=== PATIENT | male | born 2000 | race American Indian/Alaskan Native ===

== ENCOUNTER 2020-05-04 19:46 | Emergency (ER) | payer SELFPAY ==
[2020-05-04 20:27] VITALS: BP 148/47
--- NOTE | 2020-05-04 20:56 | Event Note ---
ED Screening Note Date of service: 05/04/20 Time: 20:55 ED Screening Note: Patient complains of substernal chest pain x2 weeks This initial assessment/diagnostic orders/clinical plan/treatment(s) is/are subject to change based on patients health status, clinical progression and re- assessment by fellow clinical providers in the ED. Further treatment and workup at subsequent clinical providers discretion. Patient/guardian urged not to elope from the ED as their condition may be serious if not clinically assessed and managed. Initial orders include: Labs EKG Chest x-ray
[2020-05-04 21:30] LABS: Basophils # (Auto) 0.1 K/mm3 (0.0-0.1); Basophils % (Auto) 1.1 % (0.0-1.8); Eosinophils # (Auto) 0.3 K/mm3 (0.0-0.4); Eosinophils % (Auto) 2.8 % (0.0-4.3); Hemoglobin 15.3 gm/dl (11.8-15.2); Lymphocytes # (Auto) 3.3 K/mm3 (1.2-5.4); Mean Corpuscular HGB Conc 34 % (32-34); Mean Corpuscular Volume 88 fl (84-94); Monocytes # (Auto) 0.9 K/mm3 (0.0-0.8); Monocytes % (Auto) 9.4 % (0.0-7.3); Platelet Count 233 K/mm3 (140-440); Red Blood Count 5.13 M/mm3 (3.65-5.03); Red Cell Distribution Width 14.1 % (13.2-15.2)
[2020-05-04 21:50] LABS: Alanine Aminotransferase 13 units/L (7-56); Albumin 5.1 g/dL (3.9-5); BUN/Creatinine Ratio 5; Blood Urea Nitrogen 7 mg/dL (9-20); Calcium 10.1 mg/dL (8.4-10.2); Hemolysis Index 8
--- NOTE | 2020-05-04 22:11 | XRay Report ---
CHEST 2 VIEWS INDICATION / CLINICAL INFORMATION: substernal chest pain. COMPARISON: None available. FINDINGS: SUPPORT DEVICES: None. HEART / MEDIASTINUM: No significant abnormality. LUNGS / PLEURA: No significant pulmonary or pleural abnormality. No pneumothorax. ADDITIONAL FINDINGS: No significant additional findings. IMPRESSION: No acute cardiopulmonary abnormality. Signer Name: Cortez Sagastume MD Signed: 05/04/2020 10:06 PM Workstation Name: [id number]
--- NOTE | 2020-05-04 22:43 | Emergency Department Report ---
ED Chest Pain HPI - General Chief Complaint: Chest Pain Stated Complaint: CHEST PAIN Source: patient Mode of arrival: Ambulatory Limitations: No Limitations - History of Present Illness Initial Comments: Patient is a 19-year-old -[place] male with no past medical history presents to the ED with complaint of acute onset persistent anterior chest wall pain after heavy lifting at work for the last 1 week. Patient states that the pain is worse with movement, palpation or heavy lifting. Patient states that the pain is constant and persistent and especially in the last 2 days the pain is worsened as he continues to work which also entails heavy lifting. Patient denies shortness of breath, dizziness, syncope, nausea, vomiting, neck pain, headache, fall, traumatic injury, hemoptysis, fever, chills, abdominal pain, back pain, change in vision, palpitations or cough. MD Complaint: chest pain (Anterior chest wall pain from heavy lifting at work) -: Sudden, week(s) (1) Onset: during exertion, other (Heavy lifting) Pain Location: substernal (Anterior substernal chest wall pain) Pain Radiation: none Severity: moderate Severity scale (0 -10): 5 Quality: aching, sharp Consistency: constant Improves With: nothing Worsens With: palpation, movement, other (Lifting) Context: other (Heavy lifting at work) re: denies: nausea, vomting, diaphoresis, dyspnea, sense of impending doom Other Symptoms: denies: cough, fever, syncope, rash, leg swelling, palpitations, burping, other Treatments Prior to Arrival: none Aspirin use within the Past 7 Days: (0) No - Related Data On Oral Contraceptives: No Previous Rx's Medication Instructions Recorded Last Taken Type Ibuprofen [Motrin] 600 mg PO Q8H PRN #30 tablet 05/04/20 Unknown Rx Allergies Allergy/AdvReac Type Severity Reaction Status Date / Time No Known Allergies Allergy Unverified 05/04/20 20:25 Heart Score - HEART Score History: Slightly suspicious EKG: Normal Age: < 45 Risk factors: No known risk factors Troponin: < normal limit HEART Score: 0 - Critical Actions Critical Actions: 0-3 pts:0.9-1.7%risk of adverse cardiac event.Candidate for discharge ED Review of Systems ROS: Stated complaint: CHEST PAIN Other details as noted in HPI Constitutional: denies: chills, fever Eyes: denies: eye pain, eye discharge, vision change ENT: denies: ear pain, throat pain Respiratory: denies: cough, shortness of breath, wheezing Cardiovascular: chest pain (Anterior chest wall pain). denies: palpitations Endocrine: no symptoms reported Gastrointestinal: denies: abdominal pain, nausea, diarrhea Genitourinary: denies: urgency, dysuria Musculoskeletal: denies: back pain, joint swelling, arthralgia Skin: denies: rash, lesions Neurological: denies: headache, weakness, paresthesias Psychiatric: denies: anxiety, depression Hematological/Lymphatic: denies: easy bleeding, easy bruising ED Past Medical Hx - Past Medical History Previous Medical History?: No - Social History Smoking Status: Current Every Day Smoker - Medications Home Medications: Home Medications Medication Instructions Recorded Confirmed Last Taken Type Ibuprofen [Motrin] 600 mg PO Q8H PRN #30 tablet 05/04/20 Unknown Rx ED Physical Exam - General Limitations: No Limitations General appearance: alert, in no apparent distress - Head Head exam: Present: atraumatic, normocephalic, normal inspection - Eye Eye exam: Present: normal appearance, PERRL, EOMI Pupils: Present: normal accommodation - ENT ENT exam: Present: normal exam, normal orophraynx, mucous membranes moist, TM's normal bilaterally, normal external ear exam - Neck Neck exam: Present: normal inspection, full ROM - Respiratory Respiratory exam: Present: normal lung sounds bilaterally, chest wall tenderness (Palpable reproducible anterior chest wall tenderness). Absent: respiratory distress, wheezes, rhonchi, accessory muscle use, decreased breath sounds, prolonged expiratory - Cardiovascular Cardiovascular Exam: Present: regular rate, normal rhythm, normal heart sounds. Absent: systolic murmur, diastolic murmur, rubs, gallop - GI/Abdominal GI/Abdominal exam: Present: soft, normal bowel sounds. Absent: tenderness, guarding, rebound, hyperactive bowel sounds, hypoactive bowel sounds, organomegaly - Extremities Exam Extremities exam: Present: normal inspection, full ROM, normal capillary refill - Back Exam Back exam: Present: normal inspection, full ROM. Absent: tenderness, CVA tenderness (R), CVA tenderness (L), muscle spasm, paraspinal tenderness, vertebral tenderness - Neurological Exam Neurological exam: Present: alert, oriented X3, CN II-XII intact, normal gait, reflexes normal - Psychiatric Psychiatric exam: Present: normal affect, normal mood - Skin Skin exam: Present: warm, dry, intact, normal color. Absent: rash ED Course Vital Signs 05/04/20 20:26 Temperature 99.0 F Pulse Rate 64 Respiratory 18 Rate Blood Pressure 148/47 O2 Sat by Pulse 100 Oximetry JEFF score - Jeff Score Age > 65: (0) No Aspirin use within the Past 7 Days: (0) No 3 or more CAD Risk Factors: (0) No 2 or more Angina events in past 24 hrs: (0) No Known CAD with more than 50% Stenosis: (0) No Elevated Cardiac Markers: (0) No ST Deviation Greater than 0.5mm: (0) No JEFF Score: 0 ED Medical Decision Making - Lab Data Result diagrams: 05/04/20 21:04 05/04/20 21:04 - Radiology Data Radiology results: report reviewed, image reviewed [address] [address] XRay Report Signed Patient: ANDREA RAMOS III MR#: [id number] : 2000 Acct:[id number] Age/Sex: 19 / M ADM Date: 05/04/20 Loc: ED Attending Dr: Ordering Physician: ANGELICA BUITRAGO Date of Service: 05/04/20 Procedure(s): XR chest routine 2V Accession Number(s): [id number] cc: ANGELICA BUITRAGO Fluoro Time In Minutes: CHEST 2 VIEWS INDICATION / CLINICAL INFORMATION: substernal chest pain. COMPARISON: None available. FINDINGS: SUPPORT DEVICES: None. HEART / MEDIASTINUM: No significant abnormality. LUNGS / PLEURA: No significant pulmonary or pleural abnormality. No pneumothorax. ADDITIONAL FINDINGS: No significant additional findings. IMPRESSION: No acute cardiopulmonary abnormality. Signer Name: Nahed Fields MD Signed: 05/04/2020 10:06 PM Workstation Name: [id number] Transcribed By: SS Dictated By: NAHED FIELDS Electronically Authenticated By: NAHED FIELDS Signed Date/Time: 05/04/202205 DD/ 05 TD/TT: - Medical Decision Making This is a 19-year-old -[place] male with no past medical history presents to the ED with complaint of acute onset persistent anterior chest wall pain after heavy lifting at work for the last 1 week. Patient states that the pain is worse with movement, palpation or heavy lifting. Patient states that the pain is constant and persistent and especially in the last 2 days the pain is worsened as he continues to work which also entails heavy lifting. In the ED, patient is alert and oriented x3 and is not in any distress. EKG shows normal sinus rhythm with a ventricular rate of [address] or T wave abnormalities or pathological Q waves. Chest x-ray shows no acute cardiopulmonary abnormalities or pneumonitis. Lab test results were reviewed and are all nonactionable. Based on the history, physical exam findings of palpable anterior chest wall tenderness, lab test results, EKG findings and imaging reports, patient symptoms are likely due to muscle strain of the chest wall or costochondritis. Patient's heart score is 0 and is PERC negative per Wells criteria. Based on this findings, the patient has low risk for ACS or PE. Other differential diagnoses were considered including pneumonia which has been excluded with x-ray which is unremarkable. Patient was therefore treated for pain in the ED with anti-inflammatory pain medications, and patient was discharged home on prescriptions of anti-inflammatory pain medications and was advised to follow-up with his primary care physician in 3 to 5 days for reevaluation or return to the ED immediately if symptoms get worse. - Differential Diagnosis ACS; PE, Pneumonia; Muscle strain; Costochondritis; GERD Critical care attestation.: If time is entered above; I have spent that time in minutes in the direct care of this critically ill patient, excluding procedure time. ED Disposition Clinical Impression: Acute costochondritis, Muscle strain of anterior chest wall Disposition: DC-01 TO HOME OR SELFCARE Is pt being admited?: No Does the pt Need Aspirin: No Condition: Stable Instructions: Costochondritis, [id number], Muscle Strain, [id number] Additional Instructions: All lab test results were reviewed and are all nonactionable. Chest x-ray shows no acute cardiopulmonary abnormalities or pneumonitis or rib fractures. EKG shows normal sinus rhythm. Therefore your symptoms are due to muscle strain or costochondritis of your chest wall muscles and cartilages from heavy lifting which caused inflammation. Therefore take pain medication with food as needed, drink plenty of fluids and follow-up with your primary care physician in 5 to 7 days for reevaluation. Return to the ED immediately if symptoms get worse. Prescriptions: Ibuprofen [Motrin] 600 mg PO Q8H PRN #30 tablet PRN Reason: Pain Referrals: [facility] [Provider Group] - 3-5 Days Forms: Work/School Release Form(ED) Time of Disposition: 22:50 Print Language: LATVIAN
[2020-05-04] MEDS ORDERED: IBUPROFEN 400 MG TAB PO ONE (22:51)
[2020-05-04] MEDS ORDERED: ACETAMINOPHEN 325 MG TAB PO ONE (22:51)
--- NOTE | 2020-05-05 11:24 | Electrocardiograph Report ---
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
== END 2020-05-04 21:00 | disposition home or self-care (01) ==
LOC: ED 19:46
DX: S29.011A Strain of muscle and tendon of front wall of thorax, initial encounter (principal); M94.0 Chondrocostal junction syndrome [Tietze]; F17.200 Nicotine dependence, unspecified, uncomplicated; Z79.899 Other long term (current) drug therapy; X50.0XXA Overexertion from strenuous movement or load, initial encounter; Y93.89 Activity, other specified; Y92.89 Other specified places as the place of occurrence of the external cause; Y99.8 Other external cause status
CPT/HCPCS: 36415; 71046; 80053; 84484; 85025; 93005